=== PATIENT | female | born 1960 | race African-American/Black ===

== ENCOUNTER → 2021-05-04 | Outpatient (CLI) | payer BC | END | disposition home or self-care (01) | LOC: LAB 13:40 | PROVIDERS: ATTEND Obstetrics & Gynecology | DX: U07.1 COVID-19 (principal); Z01.812 Encounter for preprocedural laboratory examination | CPT/HCPCS: C9803; U0003; U0005 ==

== ENCOUNTER 2021-05-09 14:06 | Emergency (ER) | payer BC ==
[~2021-05-09] VITALS: Ht 172.7 cm; Wt 101.0 kg
[2021-05-09 14:12] VITALS: BP 120/88
== END 2021-05-09 16:29 | disposition home or self-care (01) ==
LOC: ER 14:06
DX: U07.1 COVID-19 (principal)
CPT/HCPCS: 99282; U0003